=== PATIENT | female | born 1980 | race Caucasian/White ===

== ENCOUNTER 2016-05-15 16:01 | Emergency (ER) | payer OTHER ==
[~2016-05-15] VITALS: Ht 154.9 cm; Wt 49.9 kg
[~2016-05-15 16:01] MED LIST: NORCO 5/325 MG1 TAB PO
[2016-05-15 16:14] VITALS: BP 143/92
[2016-05-15] MEDS ORDERED: ZOLOFT100 MG PO (16:16)
--- NOTE | 2016-05-15 19:05 | NUR ---
PATIENT PRESENTS TO ED WITH SPIDER BITE ON LEFT SIDE OF NECK X1 DAY WITH VOMITING. DENIES DIARREHA; SKIN IS PINK/WARM/DRY; AAOX4 WITH EVEN AND STEADY GAIT; LUNGS CLEAR BL; HR EVEN AND REGULAR; PT DENIES ANY FEVER, CP, SOB, OR COUGH AT THIS TIME; PATIENT STATES PAIN OF 7/10 AT THIS TIME; VSS; PATIENT POSITIONED FOR COMFORT; HOB ELEVATED; BEDRAILS UP X2; BED DOWN. ER MD MADE AWARE OF PT STATUS.
--- NOTE | 2016-05-15 19:14 | NUR ---
REPORT GIVEN TO OPAL CONWAY
--- NOTE | 2016-05-15 19:18 | NUR ---
Note sally in EDM - 05/15/16 at 1934 by PENNY PT STABLE, VSS. NO S/S OF DISTRESS NOTED AT THIS MOMENT. IV FLUIDS RUNNING. WILL COTINUE TO MONITOR.
--- NOTE | 2016-05-15 19:18 | NUR ---
PT STABLE, VSS. NO S/S OF DISTRESS NOTED AT THIS MOMENT.
[2016-05-15] MEDS ORDERED: KETOROLAC 60 MG/2 ML VIAL IM ONE (19:40)
[2016-05-15] MEDS ORDERED: fentaNYL 0.05 MG/ML VIAL IM ONE (20:35)
[2016-05-15] MEDS ORDERED: CLINDAMYCIN 150 MG CAP PO ONE (20:40)
[2016-05-15 21:07] VITALS: BP 117/73
--- NOTE | 2016-05-15 21:07 | NUR ---
Patient discharged with v/s stable. Written and verbal after care instructions given and explained. Patient alert, oriented and verbalized understanding of instructions. Ambulatory with steady gait. All questions addressed prior to discharge. ID band removed. Patient advised to follow up with PMD. Rx of TRAMADOL, ZOFRAN, CLINDAMYCIN HYDROCHLORIDE given. Patient educated on indication of medication including possible reaction and side effects. Opportunity to ask questions provided and answered.
== END 2016-05-15 21:07 | disposition home or self-care (01) ==
LOC: MED 16:01
DX: T63.331A Toxic effect of venom of brown recluse spider, accidental (unintentional), initial encounter (principal); N28.9 Disorder of kidney and ureter, unspecified; Z87.442 Personal history of urinary calculi; Z88.5 Allergy status to narcotic agent; Z88.0 Allergy status to penicillin; Z88.1 Allergy status to other antibiotic agents; Y92.89 Other specified places as the place of occurrence of the external cause
CPT/HCPCS: 81002; 81025; 90471; 90715; 96372; 99284; J1885; J3010